=== PATIENT | male | born 1975 | race Caucasian/White ===

== ENCOUNTER → 2024-07-31 | Outpatient (CLI) | payer OTHER ==
[~2024-07-31] MED LIST: MELOXICAM15 MG PO; VOLTAREN ARTHRI20 GM TP
== END ==
LOC: RAD 17:19
DX: M19.012 Primary osteoarthritis, left shoulder (principal)

== ENCOUNTER 2024-08-03 08:41 | Emergency (ER) | payer OTHER ==
[~2024-08-03] VITALS: Ht 170.2 cm; Wt 71.5 kg
[2024-08-03] MEDS ORDERED: MELOXICAM15 MG PO (08:47)
[2024-08-03 09:26] LABS: ALBUMIN 4.5 g/dL (3.5-5.0); BASO # 0.04 K/mm3 (0.02-0.10); EOS # 0.32 K/mm3 (0.04-0.40); EOS % 3.6 % (0.0-4.0); HEMATOCRIT 43.7 % (42.0-52.0); HEMOGLOBIN 14.6 g/dL (13.5-18.0); LYMPH# 1.46 K/mm3 (1.50-4.00); MEAN CELL VOLUME 93 fl (78-100); MEAN CORPUSCULAR HEMOGLOBIN 31 pg (27-31); MEAN CORPUSCULAR HGB CONC 33 g/dL (33-37); MONO # 0.54 K/mm3 (0.20-0.80); NEU # 6.45 K/mm3 (1.40-6.50); PLATELET COUNT 319 K/mm3 (130-400); RED BLOOD COUNT 4.72 M/mm3 (4.20-5.60); SODIUM 140 mmol/L (136-145); WHITE BLOOD COUNT 8.8 K/mm3 (4.8-10.8)
[2024-08-03 09:27] LABS: CALCIUM 10.2 mg/dL (8.3-10.5)
[2024-08-03 09:28] LABS: GLUCOSE 98 mg/dL (75-110); TOTAL PROTEIN 7.7 g/dL (6.4-8.3)
[2024-08-03 09:29] LABS: CARBON DIOXIDE 25 mmol/L (22-29)
[2024-08-03 09:30] LABS: TOTAL BILIRUBIN 0.3 mg/dL (0.2-1.2)
[2024-08-03 09:34] LABS: AST-SGOT 20 U/L (5-34)
[2024-08-03 09:35] LABS: ALT/SGPT 28 U/L (0-55)
[2024-08-03 09:44] LABS: TROPONIN-I < 0.030 ng/mL (0.00-0.033)
[2024-08-03] MEDS ORDERED: VOLTAREN ARTHRI20 GM TP (09:57)
[2024-08-03 10:05] VITALS: BP 137/85
== END 2024-08-03 10:06 | disposition home or self-care (01) ==
LOC: ED 08:41
PROVIDERS: Family Medicine
DX: R00.1 Bradycardia, unspecified (principal); R03.0 Elevated blood-pressure reading, without diagnosis of hypertension; F17.210 Nicotine dependence, cigarettes, uncomplicated

== ENCOUNTER 2024-08-22 13:49 | Emergency (ER) | payer OTHER ==
[~2024-08-22] VITALS: Ht 170.2 cm; Wt 72.7 kg
[2024-08-22 15:33] LABS: BASO # 0.03 K/mm3 (0.02-0.10); EOS # 0.16 K/mm3 (0.04-0.40); EOS % 1.8 % (0.0-4.0); HEMATOCRIT 43.3 % (42.0-52.0); HEMOGLOBIN 14.4 g/dL (13.5-18.0); LYMPH# 1.93 K/mm3 (1.50-4.00); MEAN CELL VOLUME 92 fl (78-100); MEAN CORPUSCULAR HEMOGLOBIN 31 pg (27-31); MEAN CORPUSCULAR HGB CONC 33 g/dL (33-37); MEAN PLATELET VOLUME 8.6 fl (7.4-10.4); MONO # 0.48 K/mm3 (0.20-0.80); NEU # 6.32 K/mm3 (1.40-6.50); PLATELET COUNT 285 K/mm3 (130-400); WHITE BLOOD COUNT 8.9 K/mm3 (4.8-10.8)
[2024-08-22 15:45] LABS: ALBUMIN 4.3 g/dL (3.5-5.0)
[2024-08-22 15:46] LABS: CALCIUM 9.3 mg/dL (8.3-10.5); TOTAL PROTEIN 7.1 g/dL (6.4-8.3)
[2024-08-22 15:48] LABS: URINE APPEARANCE SLIGHTLY CLOUDY (CLEAR); URINE BILIRUBIN NEGATIVE (NEGATIVE); URINE BLOOD 3+ (NEGATIVE); URINE COLOR YELLOW (YELLOW); URINE GLUCOSE NEGATIVE (NEGATIVE); URINE KETONE NEGATIVE (NEGATIVE); URINE LEUKOCYTE ESTERASE NEGATIVE (NEGATIVE); URINE NITRATE NEGATIVE (NEGATIVE); URINE PROTEIN(semi-quant) NEGATIVE (NEGATIVE)
[2024-08-22 15:48] LABS: TOTAL BILIRUBIN 0.4 mg/dL (0.2-1.2)
[2024-08-22] MEDS ORDERED: LISINOPRIL20 MG PO (16:21)
[2024-08-22 16:29] VITALS: BP 131/92
== END 2024-08-22 16:37 | disposition home or self-care (01) ==
LOC: ED 13:49
PROVIDERS: Family Medicine
DX: I10 Essential (primary) hypertension (principal); F43.9 Reaction to severe stress, unspecified; R53.81 Other malaise; R53.83 Other fatigue; F17.210 Nicotine dependence, cigarettes, uncomplicated; F17.220 Nicotine dependence, chewing tobacco, uncomplicated; Z79.899 Other long term (current) drug therapy

== ENCOUNTER → 2024-09-19 | Outpatient (CLI) | payer OTHER ==
[~2024-09-19] MED LIST changes: +LISINOPRIL20 MG PO
[2024-09-19 11:19] LABS: BASO # 0.04 K/mm3 (0.02-0.10); EOS # 0.25 K/mm3 (0.04-0.40); EOS % 3.2 % (0.0-4.0); HEMATOCRIT 43.6 % (42.0-52.0); HEMOGLOBIN 14.9 g/dL (13.5-18.0); LYMPH# 1.72 K/mm3 (1.50-4.00); MEAN CELL VOLUME 91 fl (78-100); MEAN CORPUSCULAR HEMOGLOBIN 31 pg (27-31); MEAN CORPUSCULAR HGB CONC 34 g/dL (33-37); MEAN PLATELET VOLUME 8.6 fl (7.4-10.4); MONO # 0.45 K/mm3 (0.20-0.80); NEU # 5.46 K/mm3 (1.40-6.50); PLATELET COUNT 355 K/mm3 (130-400); RED BLOOD COUNT 4.79 M/mm3 (4.20-5.60); WHITE BLOOD COUNT 7.9 K/mm3 (4.8-10.8)
[2024-09-19 11:26] LABS: ALBUMIN 4.6 g/dL (3.5-5.0)
[2024-09-19 11:27] LABS: CALCIUM 10.4 mg/dL (8.3-10.5)
[2024-09-19 11:29] LABS: TOTAL PROTEIN 7.7 g/dL (6.4-8.3)
[2024-09-19 11:31] LABS: TOTAL BILIRUBIN 0.4 mg/dL (0.2-1.2)
== END ==
LOC: LAB 10:59
PROVIDERS: Nurse Practitioner
DX: Z00.00 Encounter for general adult medical examination without abnormal findings (principal); R68.89 Other general symptoms and signs

== ENCOUNTER → 2024-10-16 | Outpatient (CLI) | payer OTHER | LOC: RAD 11:00 | DX: E05.90 Thyrotoxicosis, unspecified without thyrotoxic crisis or storm (principal) ==